=== PATIENT | female | born 2000 | race African-American/Black ===

== ENCOUNTER 2022-06-12 12:58 | Emergency (ER) | payer SELFPAY ==
[~2022-06-12] VITALS: Ht 165.1 cm; Wt 61.0 kg
[2022-06-12 13:34] VITALS: BP 126/78
== END 2022-06-12 17:45 | disposition home or self-care (01) ==
LOC: ER 12:58
DX: H11.31 Conjunctival hemorrhage, right eye (principal); Y08.89XA Assault by other specified means, initial encounter; Y93.89 Activity, other specified; Y92.89 Other specified places as the place of occurrence of the external cause; Y99.8 Other external cause status
CPT/HCPCS: 70486; 76512; 99284

== ENCOUNTER 2024-06-15 19:49 | Emergency (ER) | payer SELFPAY ==
[~2024-06-15] VITALS: Ht 165.1 cm; Wt 65.0 kg
[2024-06-15 20:31] VITALS: O2SAT 100
[2024-06-15] MEDS: ACETAMINOPHEN 500MG TABLET PO ONE (22:23)
[2024-06-15] MEDS ORDERED: AMOX1TAB16 MT (22:52)
[2024-06-15 23:07] VITALS: BP 115/71; PULSE 82; RESP 16; TEMP 36.7; O2SAT 100
== END 2024-06-15 23:07 | disposition home or self-care (01) ==
LOC: ER 19:49
DX: S60.041A Contusion of right ring finger without damage to nail, initial encounter (principal); S60.051A Contusion of right little finger without damage to nail, initial encounter; Y04.1XXA Assault by human bite, initial encounter; Y93.89 Activity, other specified; Y92.89 Other specified places as the place of occurrence of the external cause; Y99.8 Other external cause status
CPT/HCPCS: 73130; 99283

== ENCOUNTER 2024-06-21 11:43 | Emergency (ER) | payer SELFPAY ==
[~2024-06-21] VITALS: Ht 165.1 cm; Wt 63.0 kg
[~2024-06-21 11:43] MED LIST: AMOX1TAB16 MT
[2024-06-21 11:55] VITALS: O2SAT 98
[2024-06-21 12:17] VITALS: BP 106/73; PULSE 82; RESP 16; TEMP 36.9; O2SAT 100
[2024-06-21] MEDS ORDERED: VALA100044 MT (13:31)
== END 2024-06-21 13:45 | disposition home or self-care (01) ==
LOC: ER 11:43
DX: S01.412A Laceration without foreign body of left cheek and temporomandibular area, initial encounter (principal); Z79.899 Other long term (current) drug therapy; Z79.624 Long term (current) use of inhibitors of nucleotide synthesis; Y04.1XXA Assault by human bite, initial encounter; Y93.89 Activity, other specified; Y92.89 Other specified places as the place of occurrence of the external cause; Y99.8 Other external cause status
CPT/HCPCS: 99283